=== PATIENT | male | born 1945 | race Native Hawaiian/Other Pacific Islander ===

== ENCOUNTER 2020-11-20 12:12 | Emergency (ER) | payer OTHER ==
[2020-11-20 12:13] VITALS: BP 139/76; TEMP 98.2
[2020-11-20 12:47] LABS: PLATELET COUNT 167 K/uL (142-355)
[2020-11-20 12:52] LABS: POTASSIUM 4.6 mmol/L (3.6-5.2)
[2020-11-20] MEDS ORDERED: ESCITALOPRAM10 MG PO (13:47)
[2020-11-20] MEDS ORDERED: LEVO-T175 MCG PO (13:48)
[2020-11-20] MEDS ORDERED: AMLODIPINE BESYLATE PO (13:48)
[2020-11-20] MEDS ORDERED: MEMA5TAB PO (13:49)
[2020-11-20] MEDS ORDERED: DONE5TAB PO (13:49)
[2020-11-20] MEDS ORDERED: OLANZAPINE10 M2 PO (13:49)
[2020-11-20] MEDS ORDERED: TRELEGY ELLIPTA1 AER INH (13:50)
[2020-11-20] MEDS ORDERED: PROVENTIL INH (13:51)
[2020-11-20] MEDS ORDERED: TYLENOL325 MG PO (14:06)
[2020-11-20] MEDS ORDERED: MAGNSUS68 PO (14:07)
== END 2020-11-20 13:23 | disposition other institution (70) ==
LOC: ED 12:12
PROVIDERS: Family Medicine
DX: R46.89 Other symptoms and signs involving appearance and behavior (principal); I10 Essential (primary) hypertension; F17.210 Nicotine dependence, cigarettes, uncomplicated; Z11.52 Encounter for screening for COVID-19; Z04.6 Encounter for general psychiatric examination, requested by authority
CPT/HCPCS: 80053; 81000; 85027; 87635; 93005; 99283; U0003